=== PATIENT | male | born 2000 | race American Indian/Alaskan Native ===

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

== ENCOUNTER 2022-01-24 11:03 | Emergency (ER) | payer MEDICAID, OTHER ==
[2022-01-24] MEDS ORDERED: HYDROmorphone 1 MG/ML Syringe IVPUSH ONE (11:10)
[2022-01-24] MEDS ORDERED: Ondansetron 4 MG/2 ML SDV IVPUSH ONE (11:10)
[2022-01-24] MEDS ORDERED: Ondansetron 4 MG/2 ML SDV ONE (11:11)
[2022-01-24] MEDS ORDERED: HYDROmorphone 1 MG/ML Syringe ONE (11:11)
[2022-01-24] MEDS ORDERED: ceFAZolin 1 GM in Sodium Chloride 0.9% 50 ML IV ONE (11:17)
[2022-01-24 11:26] VITALS: BP 121/86; PULSE 135
[2022-01-24] MEDS ORDERED: Lactated Ringers 1,000 ML IV SCH (11:30)
== END 2022-01-24 12:00 ==
LOC: DL.ED 11:03
DX: S82.871A Displaced pilon fracture of right tibia, initial encounter for closed fracture (principal); S82.831A Other fracture of upper and lower end of right fibula, initial encounter for closed fracture; W23.1XXA Caught, crushed, jammed, or pinched between stationary objects, initial encounter; Y99.0 Civilian activity done for income or pay
CPT/HCPCS: 73600; 96365; 96375; 99285; J0690; J1170; J2405; J7120